=== PATIENT | male | born 1950 | race Caucasian/White ===

== ENCOUNTER 2024-05-21 23:26 | Inpatient (IN) ==
[2024-05-21] MEDS ORDERED: IOPAMIDOL 100 ML BOTTLE IV ONE (23:27)
[2024-05-21] MEDS: IPRATROPIUM/ALBUTEROL 3 ML AMPUL.NEB NEB ONE (23:55)
[2024-05-22] MEDS: methylPREDNISolone SOD SUCC 125 MG/2 ML VIAL IV ONE (00:32)
[2024-05-22] MEDS: 0.9 % SODIUM CHLORIDE 2,260 ML IV ONE (00:32)
[2024-05-22 00:39] LABS: Basophils # (Auto) 0.02 K/mcL (0.00-0.30); Basophils % (Auto) 0.2 % (0.0-2.0); Eosinophils # (Auto) 0 K/mcL (0.00-0.70); Eosinophils % (Auto) 0 % (0.0-7.0); Hematocrit 46.3 % (40.1-51.0); Hemoglobin 15.1 g/dL (13.7-17.5); Lymphocytes % (Auto) 3.7 % (15.5-49.0); Mean Cell Volume 95.9 fL (80.0-100.0); Mean Corpuscular HGB Conc 32.6 g/dL (31.0-36.0); Mean Platelet Volume 10.2 fL (8.8-12.5); Monocytes # (Auto) 0.53 K/mcL (0.10-0.90); Monocytes % (Auto) 4.9 % (1.0-12.0); Neutrophils % (Auto) 90.7 % (38.0-78.0); Platelet Count 126 K/mcL (140-440); RBC 4.83 M/mcL (4.63-6.08); Red Cell Distribution Width 11.8 % (11.5-14.5); WBC 10.9 K/mcL (4.5-11.0)
[2024-05-22 00:54] LABS: Prothrombin Time 13.8 sec (11.9-14.5)
[2024-05-22 00:54] LABS: Appearance,Urine Clear (Clear); Bilirubin,Urine Negative (Negative); Color,Urine Yellow; Culture Indicated,Urine No; Glucose,Urine (UA) Negative (Negative); Ketones,Urine Trace mg/dL (Negative); Leukocyte Esterase,Urine Negative /uL (Negative); Mucus,Urine Few /hpf; Nitrate,Urine Negative (Negative); Protein,Urine 100 mg/dL (Negative); Urine Blood Negative ery/mcL (Negative); Urine RBC 0 /hpf (0-3); Urine Squamous Epithelial Cell 0 /hpf (0-4); Urine WBC 0 /hpf (0-4); Urobilinogen,Urine Normal
[2024-05-22] MEDS: ACETAMINOPHEN 1,000 MG/100 ML BAG IV ONE (00:58)
[2024-05-22 01:03] LABS: ALT/SGPT 36 U/L (<40); AST/SGOT 61 U/L (<40); Albumin 4.1 gm/dL (3.2-5.2); Albumin/Globulin Ratio 1.8 (1.0-2.3); Alkaline Phosphatase 81 U/L (39-117); Bilirubin,Total 0.8 mg/dL (0.1-1.0); Blood Urea Nitrogen 11 mg/dL (8-23); Calcium 9.2 mg/dL (8.6-10.4); Carbon Dioxide 30 mmol/L (22-30); Chloride 97 mmol/L (96-108); Globulin 2.3 gm/dL (2.2-3.7); Glomerular Filtration Rate 93; Glucose 141 mg/dL (70-105); Potassium 3.9 mmol/L (3.3-5.1); Sodium 136 mmol/L (133-145)
[2024-05-22] MEDS: cefTRIAXone 2 GM in DEXTROSE 5% IN WATER 50 ML IV ONE (01:23)
[2024-05-22] MEDS: AZITHROMYCIN 500 MG in DEXTROSE 5% IN WATER 250 ML IV ONE (02:20)
[2024-05-22] MEDS: HEPARIN SOD,PORK IN 0.45% NACL 25,000 UNIT in PREMIX 1 BAG IV SCH (03:45)
[2024-05-22] MEDS: HEPARIN 5,000 UNIT/ML VIAL IV ONE (03:45)
[2024-05-22] MEDS: LORazepam 2 MG/ML VIAL IV ONE (05:18)
[2024-05-22] MEDS ORDERED: traZODone HCL 50 MG TABLET PO PRN (12:59)
[2024-05-22] MEDS ORDERED: IPRATROPIUM/ALBUTEROL 3 ML AMPUL.NEB NEB PRN (12:59)
[2024-05-22] MEDS ORDERED: ONDANSETRON 4 MG/2 ML VIAL IV PRN (12:59)
[2024-05-22] MEDS ORDERED: guaiFENesin/DEXTROMETHORPHAN 5ML UD CUP PO PRN (12:59)
[2024-05-22] MEDS: DEXAMETHASONE 4 MG TABLET PO SCH (13:42)
[2024-05-22] MEDS: REMDESIVIR 200 MG in 0.9 % SODIUM CHLORIDE 250 ML IV ONE (13:45)
[2024-05-22] MEDS: 0.9 % SODIUM CHLORIDE 1,000 ML IV SCH (13:53)
[2024-05-22] MEDS: 0.9 % SODIUM CHLORIDE 10 ML SYRINGE IV SCH (14:59)
[2024-05-22] MEDS: PANTOPRAZOLE 40 MG TABLET PO SCH (16:24)
[2024-05-22] MEDS: ACETAMINOPHEN 325 MG TABLET PO PRN (16:24)
[2024-05-22] MEDS: cefTRIAXone 1 GM VIAL IV SCH (16:25)
[2024-05-22] MEDS ORDERED: METHOCARBAMOL 500 MG TABLET PO PRN (16:51)
[2024-05-22] MEDS: HEPARIN SOD,PORK IN 0.45% NACL 500 ML IV ONE (21:31)
[2024-05-22] MEDS: SENNOSIDES 1 TABLET PO SCH (21:31)
[2024-05-22] MEDS ORDERED: ACETAMINOPHEN 500 MG TABLET PO SCH (22:00)
[2024-05-23 07:13] LABS: Basophils # (Auto) 0 K/mcL (0.00-0.30); Basophils % (Auto) 0 % (0.0-2.0); Eosinophils # (Auto) 0 K/mcL (0.00-0.70); Eosinophils % (Auto) 0 % (0.0-7.0); Hematocrit 43.9 % (40.1-51.0); Hemoglobin 14.1 g/dL (13.7-17.5); Lymphocytes # (Auto) 1.07 K/mcL (1.50-4.80); Mean Cell Volume 98.9 fL (80.0-100.0); Mean Corpuscular HGB Conc 32.1 g/dL (31.0-36.0); Monocytes # (Auto) 0.54 K/mcL (0.10-0.90); Neutrophils % (Auto) 90.7 % (38.0-78.0); Platelet Count 121 K/mcL (140-440); RBC 4.44 M/mcL (4.63-6.08); Red Cell Distribution Width 12.5 % (11.5-14.5); WBC 17.8 K/mcL (4.5-11.0)
[2024-05-23 07:32] LABS: ALT/SGPT 41 U/L (<40); AST/SGOT 43 U/L (<40); Albumin 3.3 gm/dL (3.2-5.2); Albumin/Globulin Ratio 1.3 (1.0-2.3); Alkaline Phosphatase 73 U/L (39-117); Bilirubin,Total 0.3 mg/dL (0.1-1.0); Blood Urea Nitrogen 18 mg/dL (8-23); Carbon Dioxide 25 mmol/L (22-30); Chloride 106 mmol/L (96-108); Globulin 2.5 gm/dL (2.2-3.7); Glomerular Filtration Rate 92; Glucose 157 mg/dL (70-105); Potassium 4.3 mmol/L (3.3-5.1); Sodium 140 mmol/L (133-145)
[2024-05-23] MEDS: METHYLCELLULOSE 500 MG TABLET PO SCH (08:23)
[2024-05-23] MEDS: ZINC SULFATE 50 MG CAPSULE PO SCH (08:24)
[2024-05-23] MEDS: LACTOBACILLUS 1 CAPSULE PO SCH (08:24)
[2024-05-23] MEDS: MULTIVIT,THER IRON,CA,FA & MIN 1 TABLET PO SCH (08:26)
[2024-05-23] MEDS: VITAMIN D3 125 MCG TABLET PO SCH (08:26)
[2024-05-23] MEDS: LOSARTAN 50 MG TABLET PO SCH (08:27)
[2024-05-23] MEDS: MELOXICAM 7.5 MG TABLET PO SCH (08:27)
[2024-05-23] MEDS: AZITHROMYCIN 500 MG in DEXTROSE 5% IN WATER 250 ML IV SCH (08:29)
[2024-05-23] MEDS ORDERED: NON FORMULARY MEDICATION 1 DOSE MISCELL (Turmeric 400 mg Capsule) PO SCH (09:00)
[2024-05-23] MEDS ORDERED: [UNRECOGNIZED DRUG - OTHER] PO SCH (09:00)
[2024-05-23] MEDS ORDERED: [UNRECOGNIZED DRUG - OTHER] PO SCH (09:00)
[2024-05-23] MEDS ORDERED: GLUCOS SUL PO SCH (09:00)
[2024-05-23] MEDS: REMDESIVIR 100 MG in 0.9 % SODIUM CHLORIDE 250 ML IV SCH (09:43)
[2024-05-23] MEDS: APIXABAN 5 MG TABLET PO SCH (11:15)
[2024-05-24 06:52] LABS: Basophils # (Auto) 0.01 K/mcL (0.00-0.30); Basophils % (Auto) 0.1 % (0.0-2.0); Eosinophils # (Auto) 0 K/mcL (0.00-0.70); Eosinophils % (Auto) 0 % (0.0-7.0); Hematocrit 41.3 % (40.1-51.0); Hemoglobin 13.4 g/dL (13.7-17.5); Lymphocytes # (Auto) 0.91 K/mcL (1.50-4.80); Lymphocytes % (Auto) 6.5 % (15.5-49.0); Mean Cell Volume 97.9 fL (80.0-100.0); Mean Corpuscular HGB Conc 32.4 g/dL (31.0-36.0); Mean Platelet Volume 11.4 fL (8.8-12.5); Monocytes # (Auto) 0.47 K/mcL (0.10-0.90); Monocytes % (Auto) 3.4 % (1.0-12.0); Neutrophils % (Auto) 89.7 % (38.0-78.0); Platelet Count 127 K/mcL (140-440); RBC 4.22 M/mcL (4.63-6.08); Red Cell Distribution Width 12.9 % (11.5-14.5); WBC 13.9 K/mcL (4.5-11.0)
[2024-05-24 06:58] LABS: ALT/SGPT 29 U/L (<40); AST/SGOT 33 U/L (<40); Albumin 3.1 gm/dL (3.2-5.2); Albumin/Globulin Ratio 1.3 (1.0-2.3); Alkaline Phosphatase 74 U/L (39-117); Bilirubin,Total 0.4 mg/dL (0.1-1.0); Blood Urea Nitrogen 18 mg/dL (8-23); C-Reactive Protein 7.76 mg/dL (0.03-0.80); Calcium 8.9 mg/dL (8.6-10.4); Carbon Dioxide 27 mmol/L (22-30); Chloride 108 mmol/L (96-108); Globulin 2.4 gm/dL (2.2-3.7); Glomerular Filtration Rate 99; Glucose 151 mg/dL (70-105); Potassium 4.2 mmol/L (3.3-5.1); Sodium 141 mmol/L (133-145)
[2024-05-30] MEDS ORDERED: APIXABAN 5 MG TABLET PO SCH (09:00)
== END 2024-05-24 12:50 | disposition home health service (06) | DRG 177 ==
LOC: ED 23:26 → ICU 05-22 12:54 → MEDSUR 05-24 07:50
PROVIDERS: ADMIT Internal Medicine; ATTEND Internal Medicine